=== PATIENT | female | born 1970 | race African-American/Black ===

== ENCOUNTER → 2018-10-14 | Emergency (ER) | payer BC ==
[~2018-10-14] MED LIST: EXFORGE PO; HYDROCHLOROTH12.5 MG PO; IBUPROFEN 600600 M1; NORVASC10 MG PO; PERCOCET 5-3251 EACH PO; PHENERGAN 25 MG25 M1 PO
[2018-10-14 13:28] VITALS: BP 138/119
== END ==
LOC: ER 13:27
DX: Z53.21 Procedure and treatment not carried out due to patient leaving prior to being seen by health care provider (principal)

== ENCOUNTER 2021-01-09 08:39 | Emergency (ER) | payer OTHER ==
[~2021-01-09] VITALS: Ht 170.2 cm; Wt 77.1 kg
[2021-01-09] MEDS ORDERED: NORVASC10 MG PO ×2 (08:49→09:49)
[2021-01-09] MEDS ORDERED: VALSARTAN-HCTZ1 EAC2 PO ×2 (08:50→09:49)
[2021-01-09 10:09] VITALS: BP 127/81
== END 2021-01-09 10:11 | disposition home or self-care (01) ==
LOC: ER 08:39
DX: I10 Essential (primary) hypertension (principal); Z76.0 Encounter for issue of repeat prescription; Z98.890 Other specified postprocedural states; Z79.899 Other long term (current) drug therapy; Z91.041 Radiographic dye allergy status